=== PATIENT | male | born 1960 | race Caucasian/White ===

== ENCOUNTER 2018-04-04 14:36 | Emergency (ER) | payer OTHER, MEDICARE ==
[~2018-04-04] VITALS: Ht 182.9 cm; Wt 77.1 kg
[~2018-04-04 14:36] MED LIST: BUTRANS1 EAC2 TOP; GABAPENTIN600 M1 PO; TRAZODONE HCL100 M1 PO; TRAZODONE HCL150 M1 PO; VENLAFAXINE HC150 MG PO
--- NOTE | 2018-04-04 15:07 | ED GENERAL ADULT ---
History of Present Illness General Chief Complaint: General Adult Stated Complaint: SENT BY FOR COUGHING UP BLOOD/ABDOM PAIN PER PT Source: patient, family, old records Exam Limitations: no limitations Vital Signs & Intake/Output Vital Signs & Intake/Output Vital Signs Date Time Temp Pulse Resp B/P B/P Pulse O2 O2 Flow FiO2 Mean Ox Delivery Rate 04/04 1739 97.8 73 20 168/87 97 Room Air 04/04 1637 Room Air 04/04 1443 98.2 80 18 152/98 96 Room Air ED Intake and Output 04/05 0000 04/04 1200 Intake Total Output Total Balance Patient 170 lb Weight Weight Reported by Patient Measurement Method Allergies Coded Allergies: No Known Allergies (02/18/17) Reconcile Medications Buprenorphine (Butrans) 20 MCG/HOUR PATCH.TDWK 1 PAT TOP QSUN PAIN (Reported) Gabapentin 600 MG TABLET 1 TAB PO TID NERVE PAIN (Reported) Trazodone HCl 150 MG TABLET 1 TAB PO QPM SLEEP (Reported) Venlafaxine HCl (Venlafaxine HCl ER) 150 MG CAP.ER.24H 2 CAP PO DAILY ANXIETY Triage Note: 57 Y/O MALE SENT BY DR DYE FOR EVAL OF LLQ PAIN (X 6 MONTHS PER PT); RECENT WEIGHT LOSS/DECREASED APPETITE/PO INTAKE, AND COUGH WITH RED COLOR TO IT (X 2 WEEKS PER PT). PT ALSO C/O FATIGUE OVER LAST FEW WEEKS. PT DENIES SOB. DENIES C/P. DENIES NAUSEA. EVAL'D BY TEJA GALO IN TRIAGE Triage Nurses Notes Reviewed? yes Onset: Abrupt Duration: day(s):, constant, continues in ED Timing: recent history Injury Environment: home No Modifying Factors: none HPI: 37-year-old male comes into the emergency room for 2 primary complaints. He comes in with complaints of coughing up blood for the last 4 days. Also some left lower abdominal pain. He denies any fever chills shortness of breath or chest pain. The left lower abdominal pains been going on for months. No changes in bowel movement. He saw his primary care doctor today who he has not seen in quite some time and was sent in for further evaluation. He has a history of smoking. (Buck Howard) Past History Travel History Traveled to [place] past 21 day No Medical History Any Pertinent Medical History? see below for history Neurological: NONE EENT: NONE Cardiovascular: NONE Respiratory: NONE Gastrointestinal: NONE Hepatic: NONE Renal: NONE Musculoskeletal: chronic back pain Psychiatric: anxiety, depression, PANIC DISORDER Endocrine: NONE Blood Disorders: NONE Cancer(s): NONE History of MRSA: No History of VRE: No History of CDIFF: No Surgical History Surgical History: non-contributory Psychosocial History Who do you live with Patient/Self What is your primary language [place]an Tobacco Use: Current Daily Use Daily Tobacco Use Amount/Type: => 5 Cigarettes daily Family History Hx Contributory? No (Buck Howard) Review of Systems Review of Systems Constitutional: Reports: no symptoms. EENTM: Reports: no symptoms. Respiratory: Reports: see HPI. Cardiovascular: Reports: no symptoms. GI: Reports: see HPI. Genitourinary: Reports: no symptoms. Musculoskeletal: Reports: no symptoms. Skin: Reports: no symptoms. Neurological/Psychological: Reports: no symptoms. Hematologic/Endocrine: Reports: see HPI. Immunologic/Allergic: Reports: no symptoms. All Other Systems: Reviewed and Negative (Buck Howard) Physical Exam Physical Exam General Appearance: well developed/nourished, no apparent distress, alert, awake Head: atraumatic, normal appearance Eyes: Bilateral: normal appearance. Ears, Nose, Throat: normal ENT inspection, hearing grossly normal Neck: normal inspection Respiratory: normal breath sounds, no respiratory distress Cardiovascular: regular rate/rhythm Back: normal inspection Extremities: normal inspection, no edema Neurologic/Psych: awake, alert, oriented x 3 Skin: intact, normal color (Buck Howard) Core Measures ACS in differential dx? No CVA/TIA Diagnosis: No Sepsis Present: No Sepsis Focused Exam Completed? No (Nestor Nation) Progress Differential Diagnoses I considered the following diagnoses in my evaluation of the patient: Pneumonia , bronchitis, PE, lung CA, diverticulitis, colon CA, Plan of Care: Orders Procedure Date/time Status TROPONIN LEVEL 04/04 1447 Complete PARTIAL THROMBOPLASTIN TIME 04/04 144 Complete PROTHROMBIN TIME 04/04 144 Complete LIPASE 04/04 144 Complete D-DIMER 04/04 1447 Complete COMPREHENSIVE METABOLIC PANEL 04/04 1447 Complete CBC WITHOUT DIFFERENTIAL 04/04 1447 Complete EKG 04/04 1447 Active Laboratory Tests 04/04/18 1524: Anion Gap 8, Estimated GFR > 60, BUN/Creatinine Ratio 22.5, Glucose 94, Calcium 9.9, Total Bilirubin 0.4, AST 19, ALT 39, Alkaline Phosphatase 100, Troponin I < 0.01, Total Protein 7.4, Albumin 4.7, Globulin 2.7, Albumin/Globulin Ratio 1.7, Lipase 32, PT 11.6, INR 1.06, APTT 35, D-Dimer High Sensitivty < 200, CBC w Diff NO MAN DIFF REQ, RBC 5.98, MCV 85.6, MCH 28.6, MCHC 33.5, RDW 13.7, MPV 7.4, Gran % 68.1, Lymphocytes % 24.7, Monocytes % 5.8, Eosinophils % 1.1, Basophils % 0.3, Absolute Granulocytes 7.3 H, Absolute Lymphocytes 2.6, Absolute Monocytes 0.6, Absolute Eosinophils 0.1, Absolute Basophils 0 04/04/18 1447: Urine Color Cancelled, Urine Clarity Cancelled, Urine pH Cancelled, Ur Specific Cost Cancelled, Urine Protein Cancelled, Urine Ketones Cancelled, Urine Nitrite Cancelled, Urine Bilirubin Cancelled, Urine Urobilinogen Cancelled, Ur Leukocyte Esterase Cancelled, Ur Microscopic Cancelled, Urine Hemoglobin Cancelled, Urine Glucose Cancelled Patient is requesting to leave prior to CT scan results being back. He understands the risks of premature discharge including permanent disability or . Patient left before AMA form could be signed. he is a/o x3. CTA and CT scan of them and pelvis are negative for acute findings. (Percy LEZAMA,Nestor) Diagnostic Imaging: Viewed by Me: Radiology Read, CT Scan. Discussed w/RAD: Radiology Read, CT Scan. Radiology Impression: PATIENT: JUAQUIN ZARAGOZA PRESENT AGE: 57 PATIENT ACCOUNT NO: [id number] : 60 LOCATION: [facility] ORDERING PHYSICIAN: Buck LEZAMA SERVICE DATE: 04/04/18 EXAM TYPE : RAD - XRY-CHEST XRAY, TWO VIEWS EXAMINATION: XR CHEST CLINICAL INFORMATION: Hemoptysis. COMPARISON: Chest radiograph dated 12/15/2013. TECHNIQUE: 2 views of the chest were obtained. FINDINGS: The heart is normal in size. Both lungs remain clear. No pleural effusion. No pneumothorax. No acute osseous abnormality. IMPRESSION: No acute cardiopulmonary disease. DICTATED BY: Richard Brantley MD DATE/TIME DICTATED:04/04/181530 HEAD CHARGER:JOSIAH DATE/ TIME TRANSCRIBED:04/04/181530 CONFIDENTIAL, DO NOT COPY WITHOUT APPROPRIATE AUTHORIZATION. <Electronically signed in Other Vendor System> SIGNED BY: Richard Brantley MD 04/04/18 153 Initial ED EKG: normal sinus rhythm, rate (71) Hand-Off Endorsed To: Nestor Nation Endorsed Time: 1651 Pending: CT (Buck Howard) Radiology Impression: PATIENT: JUAQIUN ZARAGOZA PRESENT AGE: 57 PATIENT ACCOUNT NO: [id number] : 60 LOCATION: [facility] ORDERING PHYSICIAN: Buck LEZAMA SERVICE DATE: 04/04/18 EXAM TYPE : CAT - CT ABD & PELVIS W IV CONTRAST; CTA CHEST-PULMONARY EMBOLISM EXAMINATION: CTA CHEST WITH CONTRAST. CT ABDOMEN PELVIS WITH CONTRAST. CLINICAL INFORMATION: Coughing blood, smoker and left lower quadrant pain. COMPARISON: Chest 2017. TECHNIQUE: 5 mm thin axial and reformatted 3 mm thin sagittal coronal and thicker 8mm oblique views of the pulmonary arteries were obtained. Subsequently 5 mm thin axial and reformatted 3 mm thin sagittal and coronal images of abdomen and pelvis were obtained. DLP 1090. FINDINGS: Chest: There is opacification of pulmonary artery and its branches without any intraluminal filling defect or narrowing. The thoracic aorta is of normal caliber without aneurysm or dissection. There is mild atherosclerotic calcification of the arch. The heart size is normal. Central trachea and the bronchi widely patent. The thyroid lobes are symmetrical and normal. No abnormal size mediastinal lymph nodes or mass seen. There is mild central lobular emphysema in the upper lobes. No acute pneumonic consolidation. A 5 mm pleural-based nodule left lower lobe posteriorly image 32, series 4 is noted. No additional pulmonary nodules seen. The axillae and the chest wall appears unremarkable. Abdomen and pelvis: There is small hypodense nonenhancing liver lesions. A 1.3 cm segment 4 and 7 mm segment 7 lesions, favor of cyst. No solid enhancing lesion seen. No intrahepatic ductal dilatation. Visualized spleen, pancreas and adrenal glands unremarkable. There are no radiopaque gallstones or wall thickening. There is a 4 cm cyst in the upper midpole right kidney lesion likely cyst measuring 22 Hounsfield units. No radiopaque calculi hydronephrosis seen. The kidneys are normal size shape and position. The abdominal aorta is normal caliber. The aortic branches are widely patent. There are no retroperitoneal lymph nodes or mass seen. There is moderate stool seen in the right colon without distention. The small bowel loops are normal caliber. No free air or free fluid is seen. No inflammatory process seen in the abdomen. There is focal fluid collection left inguinal canal. It measures 2.4 x 1.7 cm. The right inguinal canal appears unremarkable. The anterior abdomen wall is unremarkable. Imaging through the pelvis reveals unremarkable urinary bladder. The prostate gland is normal. Few scattered diverticuli seen in the sigmoid colon without any diverticulitis. Bone windows reveal no lytic or sclerotic process. There are degenerative disc changes with vacuum disc phenomena L5-S1 disc level. IMPRESSION: No evidence of PE. No evidence of aortic aneurysm or dissection. Diffuse emphysema without acute consolidation. There is left lower lobe pleural-based 5 mm nodule. Recommend follow-up as per Fleischner guidelines. No acute process seen in the abdomen. Likely moderate size cyst upper midpole right kidney. No radiopaque calculi or hydronephrosis. 2 hepatic nonenhancing densities likely cyst. Focal fluid collection left inguinal canal. According to the UPDATED 2017 Fleischner Society recommendations, the advised follow-up imaging for solid nodules < 6 mm is: LOW RISK PATIENT: No routine follow-up. HIGH RISK PATIENT: Optional CT at 12 months. Mild constipation. Minimal sigmoid diverticulosis. DICTATED BY: Harry Chavarria MD DATE/ TIME DICTATED:04/04/181800 HEAD CHARGER:JOSIAH DATE/TIME TRANSCRIBED: 04/04/181800 CONFIDENTIAL, DO NOT COPY WITHOUT APPROPRIATE AUTHORIZATION. < Electronically signed in Other Vendor System> SIGNED BY: Harry Chavarria MD 1818 (Nestor Nation) Departure Departure Condition: Stable Referrals: Ender Patterson MD Departure Forms: Customer Survey General Discharge Information (Buck Howard) Departure Disposition: LEFT AGAINST MEDICAL ADVICE Clinical Impression Primary Impression: Hemoptysis Additional Instructions: You are leaving this medical advice is recommended that he stay for your CAT scan results. Leaving prior to these results couldn resulted in negative health effects including permanent disability or . Return to the emergency department any concerns follow up with primary care doctor to review all results of today's visit (Nestor Nation) Critical Care Note Critical Care Note Critical Care Time: non-applicable (Nestor Nation)
--- NOTE | 2018-04-04 15:36 | RADIOLOGY REPORT ---
EXAMINATION: XR CHEST CLINICAL INFORMATION: Hemoptysis. COMPARISON: Chest radiograph dated 12/15/2013. TECHNIQUE: 2 views of the chest were obtained. FINDINGS: The heart is normal in size. Both lungs remain clear. No pleural effusion. No pneumothorax. No acute osseous abnormality. IMPRESSION: No acute cardiopulmonary disease.
[2018-04-04 15:45] LABS: ABSOLUTE BASOPHIL COUNT 0 /CUMM (0.0-0.2); ABSOLUTE EOSINOPHIL COUNT 0.1 /CUMM (0.0-0.7); ABSOLUTE GRANULOCYTE CT 7.3 /CUMM (1.4-6.5); ABSOLUTE LYMPH COUNT 2.6 /CUMM (1.2-3.4); ABSOLUTE MONOCYTE COUNT 0.6 /CUMM (0.10-0.60); BASOPHIL % 0.3 % (0.0-2.0); EOSINOPHIL % 1.1 % (0-5); GRANULOCYTE % 68.1 % (42.2-75.2); HEMATOCRIT 51.2 % (42-52); MEAN CORPUSCULAR HGB 28.6 PG (27.0-31.0); MEAN CORPUSCULAR HGB CONC 33.5 G/DL (33.0-37.0); MEAN CORPUSCULAR VOLUME 85.6 FL (80.0-94.0); MEAN PLATELET VOLUME 7.4 FL (7.4-10.4); PLATELET COUNT 348 /CUMM (130-400); RBC DISTRIBUTION WIDTH 13.7 % (11.5-14.5); RED BLOOD CELL CT 5.98 /CUMM (4.70-6.10); WHITE BLOOD CELL COUNT 10.7 /CUMM (4.8-10.8)
[2018-04-04 15:46] LABS: PT 11.6 SEC (9.4-12.5); PTT 35 SEC (25-37)
[2018-04-04 17:39] VITALS: BP 168/87
--- NOTE | 2018-04-04 18:19 | CT SCAN REPORT ---
EXAMINATION: CTA CHEST WITH CONTRAST. CT ABDOMEN PELVIS WITH CONTRAST. CLINICAL INFORMATION: Coughing blood, smoker and left lower quadrant pain. COMPARISON: Chest 04/04/2018. TECHNIQUE: 5 mm thin axial and reformatted 3 mm thin sagittal coronal and thicker 8mm oblique views of the pulmonary arteries were obtained. Subsequently 5 mm thin axial and reformatted 3 mm thin sagittal and coronal images of abdomen and pelvis were obtained. DLP 1090. FINDINGS: Chest: There is opacification of pulmonary artery and its branches without any intraluminal filling defect or narrowing. The thoracic aorta is of normal caliber without aneurysm or dissection. There is mild atherosclerotic calcification of the arch. The heart size is normal. Central trachea and the bronchi widely patent. The thyroid lobes are symmetrical and normal. No abnormal size mediastinal lymph nodes or mass seen. There is mild central lobular emphysema in the upper lobes. No acute pneumonic consolidation. A 5 mm pleural-based nodule left lower lobe posteriorly image 32, series 4 is noted. No additional pulmonary nodules seen. The axillae and the chest wall appears unremarkable. Abdomen and pelvis: There is small hypodense nonenhancing liver lesions. A 1.3 cm segment 4 and 7 mm segment 7 lesions, favor of cyst. No solid enhancing lesion seen. No intrahepatic ductal dilatation. Visualized spleen, pancreas and adrenal glands unremarkable. There are no radiopaque gallstones or wall thickening. There is a 4 cm cyst in the upper midpole right kidney lesion likely cyst measuring 22 Hounsfield units. No radiopaque calculi hydronephrosis seen. The kidneys are normal size shape and position. The abdominal aorta is normal caliber. The aortic branches are widely patent. There are no retroperitoneal lymph nodes or mass seen. There is moderate stool seen in the right colon without distention. The small bowel loops are normal caliber. No free air or free fluid is seen. No inflammatory process seen in the abdomen. There is focal fluid collection left inguinal canal. It measures 2.4 x 1.7 cm. The right inguinal canal appears unremarkable. The anterior abdomen wall is unremarkable. Imaging through the pelvis reveals unremarkable urinary bladder. The prostate gland is normal. Few scattered diverticuli seen in the sigmoid colon without any diverticulitis. Bone windows reveal no lytic or sclerotic process. There are degenerative disc changes with vacuum disc phenomena L5-S1 disc level. IMPRESSION: No evidence of PE. No evidence of aortic aneurysm or dissection. Diffuse emphysema without acute consolidation. There is left lower lobe pleural-based 5 mm nodule. Recommend follow-up as per Fleischner guidelines. No acute process seen in the abdomen. Likely moderate size cyst upper midpole right kidney. No radiopaque calculi or hydronephrosis. 2 hepatic nonenhancing densities likely cyst. Focal fluid collection left inguinal canal. According to the UPDATED 2017 Fleischner Society recommendations, the advised follow-up imaging for solid nodules < 6 mm is: LOW RISK PATIENT: No routine follow-up. HIGH RISK PATIENT: Optional CT at 12 months. Mild constipation. Minimal sigmoid diverticulosis.
== END 2018-04-04 18:19 | disposition left against medical advice (07) ==
LOC: ERH 14:36
PROVIDERS: Physician Assistant Medical
DX: R04.2 Hemoptysis (principal)
CPT/HCPCS: 71046; 74177; 93005; 93010